=== PATIENT | male | born 1960 | race African-American/Black ===

== ENCOUNTER 2017-10-24 08:54 | Emergency (ER) | payer OTHER ==
[~2017-10-24] VITALS: Ht 185.4 cm; Wt 112.0 kg
[~2017-10-24 08:54] MED LIST: ASPI-1213 PO; ATOR40TA71 PO; CARV25 PO; DIGO250T PO; HCTZ; LIDO1ADH5 TD; METFORMIN; NORTRIPTYLINE; VALS80TA2 PO
[2017-10-24] MEDS ORDERED: GABA-531 PO (08:58)
[2017-10-24 09:06] VITALS: BP 149/92
[2017-10-24 09:07] LABS: GLUCOSE,POINT OF CARE 176 MG/DL (70-110)
[2017-10-24] MEDS ORDERED: GABAPENTIN 100 MG CAPSULE PO ONE (09:45)
== END 2017-10-24 09:55 | disposition home or self-care (01) ==
LOC: EMS 08:56
DX: G50.0 Trigeminal neuralgia (principal); Z76.0 Encounter for issue of repeat prescription; E78.00 Pure hypercholesterolemia, unspecified; I10 Essential (primary) hypertension; I48.91 Unspecified atrial fibrillation; Z79.82 Long term (current) use of aspirin; Z79.84 Long term (current) use of oral hypoglycemic drugs
CPT/HCPCS: 82962; 99283

== ENCOUNTER 2019-09-08 11:46 | Emergency (ER) | payer OTHER ==
[~2019-09-08] VITALS: Ht 175.3 cm; Wt 77.3 kg
[~2019-09-08 11:46] MED LIST changes: -ASPI-1213 PO; +ASPI-1484 PO; +CARB200T6 PO; +GABA-531 PO; -HCTZ; +METF-960 PO; -METFORMIN; -NORTRIPTYLINE
[2019-09-08 12:05] LABS: GLUCOSE,POINT OF CARE 191 MG/DL (70-110)
[2019-09-08] MEDS ORDERED: GABAPENTIN 100 MG CAPSULE PO ONE (13:00)
[2019-09-08] MEDS ORDERED: CarBAMazepine 200 MG TABLET PO ONE (13:00)
[2019-09-08 13:30] VITALS: BP 145/91
== END 2019-09-08 13:46 | disposition home or self-care (01) ==
LOC: EMS 11:47
DX: G50.0 Trigeminal neuralgia (principal); E78.00 Pure hypercholesterolemia, unspecified; I10 Essential (primary) hypertension; I48.91 Unspecified atrial fibrillation; Z76.0 Encounter for issue of repeat prescription; Z79.899 Other long term (current) drug therapy; Z79.84 Long term (current) use of oral hypoglycemic drugs